=== PATIENT | male | born 1990 | race Caucasian/White ===

== ENCOUNTER 2018-02-14 15:00 | Emergency (ER) | payer OTHER ==
[~2018-02-14] VITALS: Ht 188 cm; Wt 106.0 kg
[2018-02-14 15:03] VITALS: TEMP 36.9; Ht 188 cm; Wt 106.0 kg
[2018-02-14] MEDS ORDERED: SODIUM CHLORIDE 0.9% 1000ML 1,000 ML IV STA (15:38)
[2018-02-14 15:53] VITALS: O2SAT 97
[2018-02-14 15:53] LABS: BASO ABS # 0.07 K/uL (0-0.2); EOS % 2.9 %; HEMATOCRIT 42.5 % (42-52); HEMOGLOBIN 14.9 g/dL (14.0-18.0); IG# 0.01 K/uL (0.00-0.02); LYMPH % 24.2 %; LYMPH ABS # 1.66 K/uL (1.2-3.4); MEAN CELL VOLUME 81.4 fL (80-100); MEAN CORPUSCULAR HEMOGLOBIN 28.5 pg (25-34); MEAN CORPUSCULAR HGB CONC 35.1 g/dl (32-36); MEAN PLATELET VOLUME 10.5 fL (7.4-10.4); MONO % 6.4 %; MONO ABS # 0.44 K/uL (0.11-0.59); NEUT % 65.4 %; NEUT ABS # 4.47 K/uL (1.4-6.5); PLATELET COUNT 236 K/uL (130-400); RED CELL DISTRIBUTION WIDTH SD 38.6 fL (36.4-46.3); WHITE BLOOD COUNT 6.85 K/uL (4.8-10.8)
--- NOTE | 2018-02-14 16:06 | EMERGENCY ROOM VISIT NOTE ---
History Report prepared by Nataliia: Farida Howard Under the Supervision of: Dr. Ruy Perez M.D. First contact with patient: 15:22 Chief Complaint: CARDIAC ASSESSMENT Stated Complaint: CHEST PAIN DUE TO STRESS Nursing Triage Summary: sub sternal chest pain with SOB for the past month and body weakness History of Present Illness The patient is a 27 year old male who presents to the Emergency Room with complaints of intermittent chest pain beginning a month ago. The patient reports his chest pain today was more severe than it has been for the past month which provoked him to come to the ED. The patient states he had similar pain like this before in 2016. When he had this pain in 2016, he was told it was stress related and he was given anxiety medication. The patient reports he is currently in graduate school for a Ph.D in History. He reports school causes him to be stressed. He notes he defended his master's degree yesterday and passed. The patient states he has not taken his anxiety medication for a couple months. Since the onset of his intermittent chest pain a month ago, the patient has not seen his PCP. He does not see a therapist. Presently, the patient rates his chest pain as a 2/10. He states, "when I got to the Emergency Department, I drank some water which got rid of my chest pain". The patient denies tobacco or drug use. He notes some occasional alcohol use. The patient denies any recent surgeries or recent long travel. He denies any history of cancer or high blood pressure. The patient has no family history of early cardiac disease. Source of History: patient Onset: a month ago Position: chest Quality: other (pain) Timing: intermittent Associated Symptoms: + chest pain Review of Systems See HPI for pertinent positives and negatives. A total of ten systems were reviewed and were otherwise negative. Past Medical & Surgical Medical Problems: (1) Anxiety Family History Patient reports no known family medical history. Social History Smoking Status: Never Smoker Smokeless Tobacco Use: No Alcohol Use: occasionally Drug Use: none Occupation Status: student Current/Historical Medications Scheduled Cetirizine (Zyrtec), 10 MG PO DAILY Ferrous Sulfate (Iron), 1 TAB PO DAILY Multivitamins/Minerals (Mvi With Minerals), 1 TAB PO DAILY Allergies Coded Allergies: No Known Allergies (Unverified , 02/14/18) Physical Exam Vital Signs Date Time Temp Pulse Resp B/P (MAP) Pulse Ox O2 Delivery O2 Flow Rate FiO2 02/14/18 16:32 69 18 133/69 100 Room Air 02/14/18 15:53 97 Room Air 02/14/18 15:30 Room Air 02/14/18 15:17 75 02/14/18 15:03 36.9 76 18 168/92 100 Room Air Physical Exam GENERAL: Awake, alert, anxious-appearing, in no distress HENT: Normocephalic, atraumatic. Oropharynx unremarkable. Dry mucus membranes. EYES: Normal conjunctiva. Sclera non-icteric. NECK: Supple. No nuchal rigidity. FROM. No JVD. RESPIRATORY: Clear to auscultation. CARDIAC: Regular rate, normal rhythm. Extremities warm and well perfused. Pulses equal. ABDOMEN: Soft, non-distended. No tenderness to palpation. No rebound or guarding. No masses. RECTAL: Deferred. MUSCULOSKELETAL: Chest examination reveals no tenderness. The back is symmetrical on inspection without obvious abnormality. There is no CVA tenderness to palpation. No joint edema. LOWER EXTREMITIES: Calves are equal size bilaterally and non-tender. No edema. No discoloration. NEURO: Normal sensorium. No sensory or motor deficits noted. SKIN: No rash or jaundice noted. Medical Decision & Procedures ER Provider Diagnostic Interpretation: Radiology results as stated below per my review and radiologist interpretation: CHEST ONE VIEW PORTABLE FINDINGS: The bones soft tissues and hemidiaphragms are normal. The cardiomediastinal silhouette is normal. The lungs are clear. The pulmonary vasculature is normal. IMPRESSION: Negative chest. The above report was generated using voice recognition software. It may contain grammatical, syntax or spelling errors. Electronically signed by: Tristian Govea M.D. Laboratory Results 02/14/18 15:30 Red Blood Count 5.22, Mean Corpuscular Volume 81.4, Mean Corpuscular Hemoglobin 28.5, Mean Corpuscular Hemoglobin Concent 35.1, Mean Platelet Volume 10.5, Neutrophils (%) (Auto) 65.4, Lymphocytes (%) (Auto) 24.2, Monocytes (%) (Auto) 6.4, Eosinophils (%) (Auto) 2.9, Basophils (%) (Auto) 1.0, Neutrophils # (Auto) 4.47, Lymphocytes # (Auto) 1.66, Monocytes # (Auto) 0.44, Eosinophils # (Auto) 0.20, Basophils # (Auto) 0.07 02/14/18 15:30 Test 02/14/18 15:30 White Blood Count 6.85 K/uL (4.8-10.8) Red Blood Count 5.22 M/uL (4.7-6.1) Hemoglobin 14.9 g/dL (14.0-18.0) Hematocrit 42.5 % (42-52) Mean Corpuscular Volume 81.4 fL (80-100) Mean Corpuscular Hemoglobin 28.5 pg (25-34) Mean Corpuscular Hemoglobin Concent 35.1 g/dl (32-36) Platelet Count 236 K/uL (130-400) Mean Platelet Volume 10.5 fL (7.4-10.4) Neutrophils (%) (Auto) 65.4 % Lymphocytes (%) (Auto) 24.2 % Monocytes (%) (Auto) 6.4 % Eosinophils (%) (Auto) 2.9 % Basophils (%) (Auto) 1.0 % Neutrophils # (Auto) 4.47 K/uL (1.4-6.5) Lymphocytes # (Auto) 1.66 K/uL (1.2-3.4) Monocytes # (Auto) 0.44 K/uL (0.11-0.59) Eosinophils # (Auto) 0.20 K/uL (0-0.5) Basophils # (Auto) 0.07 K/uL (0-0.2) RDW Standard Deviation 38.6 fL (36.4-46.3) RDW Coefficient of Variation 13.0 % (11.5-14.5) Immature Granulocyte % (Auto) 0.1 % Immature Granulocyte # (Auto) 0.01 K/uL (0.00-0.02) Anion Gap 7.0 mmol/L (3-11) Est Creatinine Clear Calc Drug Dose 122.0 ml/min Estimated GFR () 97.8 Estimated GFR (Non- 84.3 BUN/Creatinine Ratio 9.1 (10-20) Calcium Level 8.3 mg/dl (8.5-10.1) Magnesium Level mg/dl (1.8-2.4) Total Bilirubin 0.5 mg/dl (0.2-1) Direct Bilirubin mg/dl (0-0.2) Aspartate Amino Transf (AST/SGOT) U/L (15-37) Alanine Aminotransferase (ALT/SGPT) 52 U/L (12-78) Alkaline Phosphatase 88 U/L (45-117) Troponin I < 0.015 ng/ml (0-0.045) Total Protein 7.2 gm/dl (6.4-8.2) Albumin 3.9 gm/dl (3.4-5.0) Lipase 300 U/L (73-393) Laboratory results reviewed by me Medications Administered Medications (Trade) Dose Ordered Sig/Luh Route Start Time Stop Time Status Last Admin Dose Admin Sodium Chloride 1,000 ml @ 999 mls/hr Q1H1M STAT IV 02/14/18 15:38 02/14/18 16:38 DC 02/14/18 15:58 999 MLS/HR ECG Per My Interpretation Indication: chest pain Rate (beats per minute): 75 Rhythm: sinus with SA Findings: no acute ischemic change, other (normal axis) ED Course 1536: The patient was evaluated in room B9. A complete history and physical exam was performed. 1651: I updated the patient on his test results. 1724: I reevaluated the patient. Discussed results and discharge instructions: He verbalized understanding and agreement. The patient is ready for discharge. Medical Decision I reviewed the patient's past medical history, medications, and the nursing notes as described above. Differential diagnosis: Etiologies such as cardiac ischemia, aortic dissection, pulmonary embolism, pneumonia, pneumothorax, musculoskeletal, infections, pericarditis, myocarditis , esophageal rupture, gastrointestinal, as well as others were entertained. The patient is a 27-year-old gentleman with a past medical history of anxiety and chest pain presents emergency department with chest pain is been ongoing this week per hpi. The patient is no acute distress, afebrile stable vital signs. EKG is unremarkable. Troponin negative. Labs otherwise unremarkable. Chest x-ray negative. Feeling improved after IV fluid hydration. Patient heart score is 0, low risk. ACS not likely. PERC negative. Given the patient' s recent stressors of trying to defend his master's thesis in the setting of his prior history of chest pain 2/2 anxiety, symptoms today likely similar. No indication for further evaluation at this time. Findings and plan for follow-up reviewed with patient. Patient agreeable and d/c'd per discharge instructions. Medication Reconcilliation Current Medication List: was personally reviewed by me Blood Pressure Screening Patient's blood pressure: Elevated blood pressure Blood pressure disposition: Elevated BP felt to be situational Impression Primary Impression: Chest pain Additional Impression: Anxiety Scribe Attestation The scribe's documentation has been prepared under my direction and personally reviewed by me in its entirety. I confirm that the note above accurately reflects all work, treatment, procedures, and medical decision making performed by me. Departure Information Dispostion Home / Self-Care Forms IMPORTANT VISIT INFORMATION Patient Instructions Anxiety Body Response, ED Chest Pain Atypical Unkn Cause, My [facility] Additional Instructions Please follow up with your primary care physician on Saturday for re-evaluation. The cause of your symptoms is unclear at this time but likely related to anxiety. Otherwise, your exam, EKG, chest xray, and lab results did not show signs of an emergent condition at this time. Drink plenty of fluids to ensure hydration. Return to the emergency department for worsening symptoms as described in the accompanying instructions. Problem Qualifiers
--- NOTE | 2018-02-14 16:16 | DIAGNOSTIC IMAGING REPORT ---
CHEST ONE VIEW PORTABLE CLINICAL HISTORY: CHEST PAIN dyspnea COMPARISON STUDY: No previous studies for comparison. FINDINGS: The bones soft tissues and hemidiaphragms are normal. The cardiomediastinal silhouette is normal. The lungs are clear. The pulmonary vasculature is normal. IMPRESSION: Negative chest. The above report was generated using voice recognition software. It may contain grammatical, syntax or spelling errors. Electronically signed by: Tristian Govea M.D. 02/14/2018 4:14 PM Dictated Date/Time: 02/14/2018 4:14 PM
[2018-02-14 16:32] VITALS: BP 133/69; PULSE 69; O2SAT 100
[2018-02-14 16:45] LABS: ALBUMIN 3.9 gm/dl (3.4-5.0); ALKALINE PHOSPHATASE 88 U/L (45-117); ALT/SGPT 52 U/L (12-78); BLOOD UREA NITROGEN 11 mg/dl (7-18); CALCIUM 8.3 mg/dl (8.5-10.1); CARBON DIOXIDE 26 mmol/L (21-32); CREATININE 1.17 mg/dl (0.60-1.40); GLUCOSE 123 mg/dl (70-99); LIPASE 300 U/L (73-393); SODIUM 138 mmol/L (136-145); TOTAL PROTEIN 7.2 gm/dl (6.4-8.2)
[2018-02-14] MEDS ORDERED: MULT-513 PO (16:55)
[2018-02-14] MEDS ORDERED: CETI10TA84 PO (16:55)
[2018-02-14] MEDS ORDERED: FERR1TAB23 PO (16:55)
== END 2018-02-14 17:47 | disposition home or self-care (01) ==
LOC: C.EDB 15:02
DX: R07.9 Chest pain, unspecified (principal); F41.9 Anxiety disorder, unspecified; R06.02 Shortness of breath; R53.1 Weakness